=== PATIENT | female | born 1950 | race Caucasian/White ===

== ENCOUNTER 2016-10-14 11:43 | Inpatient (IN) | payer OTHER, MEDICARE ==
[~2016-10-14] VITALS: Ht 162.6 cm; Wt 70.8 kg
[~2016-10-14 11:43] MED LIST: ADVIN25050 PO; ALBUAER19 INH; AMB5 PO; CLC100 PO; FRRG PO; LPR25 PO; LVNIS40 SQ; MONT1TAB3 PO; MULT-589 PO; NCY50 PO; NRN100 PO; OXYSR10 PO; PRT40 PO; RSTOPS OP; RXC5 PO; SNK PO; SUMA50TA15 PO; XNX5 PO
[2016-10-14 11:51] VITALS: Ht 162.6 cm; Wt 70.8 kg
[2016-10-14] MEDS ORDERED: SODIUM CHLORIDE 0.9% 1000ML 1,000 ML IV STA (12:19)
[2016-10-14] MEDS ORDERED: LORAZEPAM 0.5 MG TAB SL STA (12:19)
[2016-10-14] MEDS ORDERED: SODIUM CHLORIDE 0.9% 250ML 250 ML IV STA (12:19)
[2016-10-14] MEDS ORDERED: CITALOPRAM 20 MG TAB PO STA (12:23)
[2016-10-14] MEDS ORDERED: ALPRAZOLAM 0.5 MG TAB PO STA (12:23)
--- NOTE | 2016-10-14 12:28 | EMERGENCY ROOM VISIT NOTE ---
History Report prepared by Onel: Jared William Under the Supervision of: Dr. Olga Johns M.D. First contact with patient: 12:15 Chief Complaint: ILLNESS Stated Complaint: SICK History of Present Illness The patient is a 66 year old female who presents to the Emergency Room with complaints of intermittent nausea for the past 1.5 months. She has also been experiencing vomiting & diarrhea. The patient has been ill since her bilateral knee replacement on August 27. She got a bladder infection and eventually pyelonephritis while staying at [facility]. The patient was on unknown antibiotics and Oxycodone, both of which she finished. The patient also complains of intermittent low-grade fevers since the surgery. Her symptoms have been making her very anxious. The patient was formerly on Xanax. She was prescribed Celexa, which she doesn't take because she believes it caused an adverse reaction. The patient is supposed to follow up with a psychiatrist, who won't see her until she recovers from the knee surgery. The patient denies suicidal ideations currently. She admits that she has thought about suicide in the past. She has never attempted suicide. Source of History: patient Onset: 1.5 months ago Position: other (GI) Quality: other (nausea) Timing: intermittent Associated Symptoms: + fevers Review of Systems See HPI for pertinent positives & negatives. A total of 10 systems reviewed and were otherwise negative. Past Medical & Surgical Medical Problems: (1) Asthma (2) Bilateral Knee Djd (3) bilateral symptomatic macromastia (4) Cervicalgia (5) Depression (6) Frequent headaches (7) Gastric ulcer (8) Kidney stones Surgical Problems: (1) Hx of cholecystectomy (2) Hx of hysterectomy (3) Hx of repair of rotator cuff Family History Cancer Heart disease Social History Smoking Status: Never Smoker Drug Use: none Marital Status: Housing Status: lives with significant other Occupation Status: employed Current/Historical Medications Scheduled Cyclosporine (Ophth) (Restasis), 1 DROP OP BID Enoxaparin (Enoxaparin Sodium), 40 MG SQ Q24H Hydroxyzine Hcl (Atarax), 5 MG PO TID Montelukast Sodium (Singulair), 10 MG PO PRN Scheduled PRN Albuterol Hfa (Ventolin Hfa), 2 PUFFS INH QID PRN for Shortness of Breath Alprazolam (Alprazolam), 0.5 MG PO Q8H PRN for Anxiety/Agitation Fluticasone Prop/Salmeterol (Advair Diskus 250-50 Mcg/Dose), 1 PUFF PO BID PRN for PRN Oxycodone HCl (Oxycodone HCl), 10 MG PO Q6H PRN for Pain Sumatriptan Succinate (Imitrex), 1 TAB PO UD PRN for Migraine Allergies Coded Allergies: Bisacodyl (Verified Allergy, Severe, SEVERE GI CRAMPS, 10/14/16) Ciprofloxacin (Verified Allergy, Intermediate, rash, thrush, 10/14/16) PER PCP RECORDS Codeine (Verified Allergy, Intermediate, RASH, HYPERACTIVITY,HEADACHE, DYSPEPSIA, 10/14/16) PALPITATIONS Hydrocodone (Verified Allergy, Intermediate, itchiness, 10/14/16) Hydromorphone (Verified Allergy, Intermediate, HYPERACTIVITY, 10/14/16) Lorazepam (Verified Allergy, Intermediate, "MEAN" AFFECT, 10/14/16) NSAIDs (Verified Allergy, Intermediate, mouth coating and then bloody, throat and stomach burn, 10/14/16) Tramadol (Verified Allergy, Intermediate, PRURITUS, HEADACHE, 10/14/16) Adhesives (Verified Allergy, Unknown, WELTS,REDNESS RASH, 10/14/16) Escitalopram (Verified Allergy, Unknown, HR RACES, 10/14/16) Latex1 -Allergic Contact Dermititis (Verified Allergy, Unknown, RASH, WELTS, ITCHING, 10/14/16) Molds & Smuts (Verified Allergy, Unknown, UNKNOWN, 10/14/16) Omeprazole (Verified Allergy, Unknown, QUESTIONABLE ALLERGY - SEVERE GI CRAMPS, 10/14/16) Penicillins (Verified Allergy, Unknown, RASH, DYSPEPSIA, 10/14/16) TOLD NOT TO TAKE-"IT WOULD KILL HER"-PENICILLIN AND AMOXICILLIN Prednisone (Verified Allergy, Unknown, RASH,RESTLESSNESS,HEADACHE, DYSPEPSIA, 10/14/16) Venlafaxine (Verified Allergy, Unknown, NIGHTMARES, 10/14/16) Acetaminophen (Verified Adverse Reaction, Intermediate, GI UPSET, 10/14/16) Buspirone (Verified Adverse Reaction, Intermediate, HYPERACTIVE, 10/14/16) Citalopram (Verified Adverse Reaction, Intermediate, NIGHT SWEATS,BAD DREAMS, 10/14/16) Flunisolide (Verified Adverse Reaction, Intermediate, NASAL SPRAY- NOSEBLEEDS,HEADACHES, 10/14/16) Hydroxyzine (Verified Adverse Reaction, Intermediate, HEADACHE - SEVER SINUS DRY/ BURNING FACIAL SENSATION, 08/27/16) Antihistamines, Chlorpheniramine-ty (Verified Adverse Reaction, Mild, SINUS DRYNESS, 10/14/16) Antihistamines, Diphenhydramine-typ (Verified Adverse Reaction, Mild, SINUS DRYNESS, 10/14/16) Antihistamines, Loratadine-type (Verified Adverse Reaction, Mild, SINUS DRYNESS, 10/14/16) Dicyclomine (Verified Adverse Reaction, Mild, WORSENING GI CRAMPS, 10/14/16 ) Diphenhydramine (Verified Adverse Reaction, Mild, headache, 10/14/16) Egg Yolk (Verified Adverse Reaction, Mild, GI UPSET, 10/14/16) Fluorometholone (Verified Adverse Reaction, Mild, 0.1% -EYE DROP EYES BURNING, 10/14/16) Gabapentin (Verified Adverse Reaction, Mild, "MEAN", 10/14/16) Physical Exam Vital Signs Date Time Temp Pulse Resp B/P Pulse Ox O2 Delivery O2 Flow Rate FiO2 10/14/16 18:21 71 18 146/84 97 10/14/16 17:01 83 18 162/92 10/14/16 16:34 75 10/14/16 16:15 74 18 153/78 98 Room Air 10/14/16 15:30 78 18 147/73 96 10/14/16 14:35 84 16 146/77 97 Room Air 10/14/16 13:18 65 16 138/85 97 10/14/16 12:38 64 10/14/16 12:30 76 18 161/90 98 10/14/16 12:14 77 18 153/94 98 Room Air 10/14/16 11:51 36.8 110 20 129/78 97 Room Air Physical Exam Vital signs reviewed. General: Patient is tearful, anxious. HEENT: No scleral icterus, PERRLA, neck supple. Atraumatic. Cardiovascular: Regular rate and rhythm, no extra sounds. Pulmonary: Clear to auscultation bilaterally, normal work of breathing. Abdomen: Soft, nontender, nondistended, positive bowel sounds. Musculoskeletal: Well-healed incisions to the bilateral knees. No peripheral edema. Neurologic: Patient awake alert and oriented x 3, full strength in all 4 extremities. Cranial nerves 2 through 12 grossly intact. Skin: Warm, dry, no rash Psychiatric: Currently denies suicidal or homicidal ideation Medical Decision & Procedures ER Provider Diagnostic Interpretation: X-ray results as stated below per my interpretation and radiologist interpretation. Other radiology results as stated below per my review and radiologist interpretation: AP CHEST WITH ABDOMINAL SERIES CLINICAL HISTORY: Vomiting and diarrhea. FINDINGS: An AP chest radiograph is compared to study dated 08/28/2016 and correlated with chest CT dated 08/30/2016. The examination is degraded by apical lordotic positioning. The cardiomediastinal silhouette is unremarkable. There is atherosclerotic calcification of the thoracic aorta. The lungs and pleural spaces are clear. No pneumothorax is seen. The skeletal structures are osteopenic. The bony thorax is grossly intact. Fusion hardware is noted in the lower cervical spine. Supine and decubitus abdominal radiographs are obtained. No prior studies are available for comparison at the time of dictation. There is a nonobstructed abdominal bowel gas pattern. No evidence of intraperitoneal free air is seen. Mild colonic fecal retention is observed. Cholecystectomy clips are noted. There are no abnormal abdominal calcifications. Phleboliths are seen in the pelvis. There is mild lumbar spondylosis. The bony pelvis appears intact. IMPRESSION: 1. No active disease in the chest. 2. Unremarkable abdominal radiographs. Electronically signed by: Chuy Pena M.D. 10/14/2016 2:04 PM Dictated Date/Time: 10/14/2016 2:[address] ANGIOGRAM OF THE CHEST CLINICAL HISTORY: Chest pain. Recent knee surgery. Suspected pulmonary embolism. COMPARISON STUDY: 08/30/2016 TECHNIQUE: Following the IV administration of 79 mL of Optiray-320, CT angiogram of the thorax was performed from the thoracic inlet to the lung bases utilizing the pulmonary embolus protocol. Images are reviewed in the axial, sagittal, and coronal planes. IV contrast was administered without complication. MIP imaging was performed. CT DOSE: 249.90 mGy.cm FINDINGS: No pathologically enlarged axillary mediastinal or hilar lymph nodes were visualized. There was no evidence of thoracic aortic dilatation. There are small bilateral pulmonary artery filling defects, most pronounced within the right lower lobe. The findings are consistent with pulmonary embolism. There are bilateral dependent groundglass opacities, likely atelectatic. No pleural effusions are visualized. IMPRESSION: Interval development of small bilateral pulmonary artery filling defects, consistent with acute pulmonary embolism. Electronically signed by: Balaji Tolbert M.D. 10/14/2016 4:14 PM Dictated Date/Time: 10/14/2016 4:09 PM Laboratory Results Test 10/14/16 00:00 10/14/16 12:50 10/14/16 12:54 Urine Color DK YELLOW Urine Appearance CLOUDY (CLEAR) Urine pH 5.5 (4.5-7.5) Urine Specific [place] 1.021 (1.000-1.030) Urine Protein TRACE (NEG) Urine Glucose (UA) NEG (NEG) Urine Ketones TRACE (NEG) Urine Occult Blood 1+ (NEG) Urine Nitrite NEG (NEG) Urine Bilirubin 1+ (NEG) Urine Urobilinogen NEG (NEG) Urine Leukocyte Esterase MODERATE (NEG) Urine WBC (Auto) >30 /hpf (0-5) Urine RBC (Auto) 10-30 /hpf (0-4) Urine Hyaline Casts (Auto) 5-10 /lpf (0-5) Urine Epithelial Cells (Auto) >30 /lpf (0-5) Urine Bacteria (Auto) NEG (NEG) Urine Crystals CALCIUM OXALATE (NONE Immature Granulocyte % (Auto) 0.2 % White Blood Count 8.79 K/uL (4.8-10.8) Red Blood Count 4.90 M/uL (4.2-5.4) Hemoglobin 13.6 g/dL (12.0-16.0) Hematocrit 41.4 % (37-47) Mean Corpuscular Volume 84.5 fL (80-100) Mean Corpuscular Hemoglobin 27.8 pg (25-34) Mean Corpuscular Hemoglobin Concent 32.9 g/dl (32-36) Platelet Count 378 K/uL (130-400) Mean Platelet Volume 10.2 fL (7.4-10.4) Neutrophils (%) (Auto) 70.7 % Lymphocytes (%) (Auto) 20.9 % Monocytes (%) (Auto) 6.3 % Eosinophils (%) (Auto) 1.3 % Basophils (%) (Auto) 0.6 % Neutrophils # (Auto) 6.22 K/uL (1.4-6.5) Lymphocytes # (Auto) 1.84 K/uL (1.2-3.4) Monocytes # (Auto) 0.55 K/uL (0.11-0.59) Eosinophils # (Auto) 0.11 K/uL (0-0.5) Basophils # (Auto) 0.05 K/uL (0-0.2) Immature Granulocyte # (Auto) 0.02 K/uL (0.00-0.02) Magnesium Level 2.0 mg/dl (1.8-2.4) Total Bilirubin 0.5 mg/dl (0.2-1) Direct Bilirubin 0.1 mg/dl (0-0.2) Aspartate Amino Transf (AST/SGOT) 26 U/L (15-37) Alanine Aminotransferase (ALT/SGPT) 31 U/L (12-78) Alkaline Phosphatase 110 U/L (45-117) Total Protein 8.2 gm/dl (6.4-8.2) Albumin 3.7 gm/dl (3.4-5.0) Lipase 109 U/L (73-393) Bedside D-Dimer > 450 ng/mlFEU (0-450) Bedside Troponin I 0.020 ng/ml (0-0.045) Laboratory results per my review. Medications Administered Medications (Trade) Dose Ordered Sig/Tong Route Start Time Stop Time Status Last Admin Dose Admin Sodium Chloride 1,000 ml @ 125 mls/hr Q8H STAT IV 10/14/16 12:19 10/14/16 20:18 DC 10/14/16 13:17 125 MLS/HR Sodium Chloride (Nss 250ml) 250 ml @ 999 mls/hr Q16M STAT IV 10/14/16 12:19 10/14/16 15:15 DC 10/14/16 13:18 999 MLS/HR Citalopram Hydrobromide (celeXA TAB) 10 mg NOW STAT PO 10/14/16 12:23 10/14/16 15:15 DC 10/14/16 13:17 10 MG Alprazolam (Xanax Tab) 0.5 mg NOW STAT PO 10/14/16 12:23 10/14/16 15:15 DC 10/14/16 13:16 0.5 MG ECG Indication: nausea Rate (beats per minute): 63 Rhythm: normal sinus Findings: no acute ischemic change, no ectopy ED Course 1217: Past medical records reviewed. The patient was evaluated in room B3b. A complete history and physical examination was performed. 1219: NSS 250 ml @ 999 mls/hr, NSS 1000 ml @ 125 mls/hr, Ativan 0.5 mg SL. 1223: Xanax 0.5 mg PO, Celexa 10 mg PO. 1626: I reviewed the patient's case with Dr. Yaneth ACOSTA. Dr. Wolfe will evaluate the patient for further management. Medical Decision Differential diagnosis: Metabolic abnormality, dehydration, PE,. pneumonia, CHF, acute coronary syndrome , anxiety. This patient was evaluated and appeared to be in no significant distress. Patient is anxious and tearful. EKG reveals no evidence of acute ischemic change. Patient was hydrated with normal saline solution. Chest x-ray is negative. Patient's laboratory work reveals an elevated d-dimer. Chest CT reveals evidence of acute PE. Patient was informed of the findings. She is stable at this time. The hospitalist was contacted and has requested bilateral lower extremity Dopplers. These have been ordered. They will evaluate the patient for further management. Patient and her are aware of the plan and agree. Consults Time Called: 1624 Consulting Physician: Dr. Yaneth ACOSTA Returned Call: [phone] I reviewed the patient's case with Dr. Yaneth ACOSTA. Dr. Wolfe will evaluate the patient for further management. Impression Primary Impression: Acute pulmonary embolism Scribe Attestation The scribe's documentation has been prepared under my direction and personally reviewed by me in its entirety. I confirm that the note above accurately reflects all work, treatment, procedures, and medical decision making performed by me. Departure Information Dispostion Being Evaluated By Hospitalist Referrals No Doctor, Assigned (PCP) Problem Qualifiers Primary Impression: Acute pulmonary embolism
[2016-10-14] MEDS ORDERED: HYDR-389 PO (12:34)
[2016-10-14] MEDS ORDERED: VNTHFA/IN INH (12:45)
[2016-10-14] MEDS ORDERED: CYCL0.052 OP (12:45)
[2016-10-14 12:58] LABS: BASO % 0.6 %; BASO ABS # 0.05 K/uL (0-0.2); COMPLETE YES; EOS % 1.3 %; HEMATOCRIT 41.4 % (37-47); IG% 0.2 %; LYMPH % 20.9 %; LYMPH ABS # 1.84 K/uL (1.2-3.4); MEAN CELL VOLUME 84.5 fL (80-100); MEAN CORPUSCULAR HEMOGLOBIN 27.8 pg (25-34); MEAN CORPUSCULAR HGB CONC 32.9 g/dl (32-36); MEAN PLATELET VOLUME 10.2 fL (7.4-10.4); MONO % 6.3 %; NEUT % 70.7 %; PLATELET COUNT 378 K/uL (130-400); WHITE BLOOD COUNT 8.79 K/uL (4.8-10.8)
[2016-10-14 13:15] LABS: BUN/CREATININE RATIO 8.3 (10-20); CALCIUM 10.3 mg/dl (8.5-10.1); CREATININE 0.94 mg/dl (0.60-1.20); POTASSIUM 3.6 mmol/L (3.5-5.1)
[2016-10-14 13:17] LABS: URINE APPEARANCE CLOUDY (CLEAR); URINE COLOR DK YELLOW; URINE EPITHELIAL CELL AUTO >30 /lpf (0-5); URINE NITRITE NEG (NEG); URINE PH 5.5 (4.5-7.5); URINE SPECIFIC GRAVITY 1.021 (1.000-1.030); UROBILINOGEN NEG (NEG); ZZURINE CULT IF INDIC CATH YES
[2016-10-14 13:20] LABS: MANUAL MICROSCOPIC REQUIRED? NO; REVIEW REQ? YES; URINE BILIRUBIN 1+ (NEG)
--- NOTE | 2016-10-14 14:05 | DIAGNOSTIC IMAGING REPORT ---
AP CHEST WITH ABDOMINAL SERIES CLINICAL HISTORY: Vomiting and diarrhea. FINDINGS: An AP chest radiograph is compared to study dated 08/28/2016 and correlated with chest CT dated 08/30/2016. The examination is degraded by apical lordotic positioning. The cardiomediastinal silhouette is unremarkable. There is atherosclerotic calcification of the thoracic aorta. The lungs and pleural spaces are clear. No pneumothorax is seen. The skeletal structures are osteopenic. The bony thorax is grossly intact. Fusion hardware is noted in the lower cervical spine. Supine and decubitus abdominal radiographs are obtained. No prior studies are available for comparison at the time of dictation. There is a nonobstructed abdominal bowel gas pattern. No evidence of intraperitoneal free air is seen. Mild colonic fecal retention is observed. Cholecystectomy clips are noted. There are no abnormal abdominal calcifications. Phleboliths are seen in the pelvis. There is mild lumbar spondylosis. The bony pelvis appears intact. IMPRESSION: 1. No active disease in the chest. 2. Unremarkable abdominal radiographs. Electronically signed by: Chuy Pena M.D. 10/14/2016 2:04 PM Dictated Date/Time: 10/14/2016 2:02 PM
[2016-10-14] MEDS ORDERED: OPTIRAY 320 IV PRN (15:30)
--- NOTE | 2016-10-14 16:15 | DIAGNOSTIC IMAGING REPORT ---
CT ANGIOGRAM OF THE CHEST CLINICAL HISTORY: Chest pain. Recent knee surgery. Suspected pulmonary embolism. COMPARISON STUDY: 08/30/2016 TECHNIQUE: Following the IV administration of 79 mL of Optiray-320, CT angiogram of the thorax was performed from the thoracic inlet to the lung bases utilizing the pulmonary embolus protocol. Images are reviewed in the axial, sagittal, and coronal planes. IV contrast was administered without complication. MIP imaging was performed. CT DOSE: 249.90 mGy.cm FINDINGS: No pathologically enlarged axillary mediastinal or hilar lymph nodes were visualized. There was no evidence of thoracic aortic dilatation. There are small bilateral pulmonary artery filling defects, most pronounced within the right lower lobe. The findings are consistent with pulmonary embolism. There are bilateral dependent groundglass opacities, likely atelectatic. No pleural effusions are visualized. IMPRESSION: Interval development of small bilateral pulmonary artery filling defects, consistent with acute pulmonary embolism. Electronically signed by: Balaji Tolbert M.D. 10/14/2016 4:14 PM Dictated Date/Time: 10/14/2016 4:09 PM
--- NOTE | 2016-10-14 17:45 | DIAGNOSTIC IMAGING REPORT ---
ULTRASOUND VENOUS DOPPLER LWR EXT BILA CLINICAL HISTORY: Pulmonary embolism. History of bilateral knee replacements. COMPARISON STUDY: No previous studies for comparison. FINDINGS: Real-time and color flow Doppler imaging were performed. Flow was seen within the femoral, popliteal and calf veins with no intraluminal thrombus demonstrated. The saphenous vein is patent. IMPRESSION: No evidence of lower extremity DVT. Electronically signed by: Balaji Tolbert M.D. 10/14/2016 5:44 PM Dictated Date/Time: 10/14/2016 5:43 PM
[2016-10-14] MEDS ORDERED: FLUTICASONE/SALMETEROL 250/50 (ADVAIR) 14 PUFF/1 INHALER INH PRN (18:45)
[2016-10-14] MEDS ORDERED: POLYETHYLENE (MIRALAX) 17 GM PACK PO PRN (18:45)
[2016-10-14] MEDS ORDERED: ALBUTEROL HFA 8 GM INHALER INH PRN (18:45)
[2016-10-14] MEDS ORDERED: ALUMINUM/MAGNESIUM/SIMETH (MAALOX MAX) 30 ML UDC PO PRN (18:45)
[2016-10-14] MEDS ORDERED: SUMATRIPTAN SUCCINATE 50 MG TAB PO PRN (18:45)
[2016-10-14] MEDS ORDERED: MAGNESIUM HYDROXIDE SUSP 30 ML UDC PO PRN (18:45)
[2016-10-14] MEDS ORDERED: ONDANSETRON INJ 2 MG/ML 2 ML VIAL IV PRN (18:45)
[2016-10-14 20:26] VITALS: BP 160/77; PULSE 61; TEMP 36.6; O2SAT 97
[2016-10-14] MEDS ORDERED: ENOXAPARIN 80 MG/0.8 ML SYR SQ SCH (21:00)
--- NOTE | 2016-10-14 21:18 | History and Physical ---
History & Physical Date & Time of Service: Oct 14, 2016 at 20:48 Chief Complaint: Acute Pulmonary Embolism Primary Care Physician: Eloise Koehler M.D. History of Present Illness Source: patient Ms. Wooten is a 66 y/o female with PMHx of Migraines, Anxiety/Depression, and Bilateral TKA (August 27, 2016) who presents to the ED c/o intermittent nausea x 1 1/2 months. History is limited as patient is extremely anxious and unable to focus on majority of questions asked. She reports that she has not been doing well mentally even prior to bilateral knee replacements. Reporting a lot of social stressors between her being out of work and her medical problems. She reports feelings depression with thoughts of suicide back in August. She has an extensive allergy list and reports poor tolerance of many medications and relates her symptoms to medications. Because of this she has stopped all medications except medications for anxiety. Recently stopped Celexa as she thought this was causing her symptoms. She received acute rehab at [facility] after her surgery and reports development of a UTI with pyelonephritis. She is not sure of the antibiotics used but she has finished the course and has had no further symptoms. At [facility] she did receive Lovenox 40 mg SC daily for DVT prophylaxis during her stay of 11 days. After discharge she has participated in physical therapy but largely immobile at home due to feeling ill. She was noted to have an elevated D -Dimer at > 450 with CTA confirming bilateral small pulmonary emboli. Venous dopplers negative for DVT. She reports a grandfather who from PE after Hip Fx. To her knowledge there is no other history of clotting disorders or blood clots in the family. She reports intermittent CP over the past month but related this to dry heaving. She denies fever/chills, SOB, or abdominal pain. She reports feelings of depression but denies current thoughts of suicide or plan. Past Medical/Surgical History Medical Problems: (1) Asthma Status: Chronic (2) Cervicalgia Status: Chronic (3) Depression Status: Chronic (4) Frequent headaches Status: Chronic (5) Gastric ulcer Status: Chronic (6) Kidney stones Status: Resolved Surgical Problems: (1) Hx of cholecystectomy Status: Resolved (2) Hx of hysterectomy Status: Resolved (3) Hx of repair of rotator cuff Status: Resolved Family History Cancer Heart disease Social History Smoking Status: Never Smoker Smokeless Tobacco Use: No Alcohol Use: none Drug Use: none Marital Status: Occupational Status: employed Allergies Coded Allergies: Bisacodyl (Verified Allergy, Severe, SEVERE GI CRAMPS, 10/14/16) Ciprofloxacin (Verified Allergy, Intermediate, rash, thrush, 10/14/16) PER PCP RECORDS Codeine (Verified Allergy, Intermediate, RASH, HYPERACTIVITY,HEADACHE, DYSPEPSIA, 10/14/16) PALPITATIONS Hydrocodone (Verified Allergy, Intermediate, itchiness, 10/14/16) Hydromorphone (Verified Allergy, Intermediate, HYPERACTIVITY, 10/14/16) Lorazepam (Verified Allergy, Intermediate, "MEAN" AFFECT, 10/14/16) NSAIDs (Verified Allergy, Intermediate, mouth coating and then bloody, throat and stomach burn, 10/14/16) Tramadol (Verified Allergy, Intermediate, PRURITUS, HEADACHE, 10/14/16) Adhesives (Verified Allergy, Unknown, WELTS,REDNESS RASH, 10/14/16) Escitalopram (Verified Allergy, Unknown, HR RACES, 10/14/16) Latex1 -Allergic Contact Dermititis (Verified Allergy, Unknown, RASH, WELTS, ITCHING, 10/14/16) Molds & Smuts (Verified Allergy, Unknown, UNKNOWN, 10/14/16) Omeprazole (Verified Allergy, Unknown, QUESTIONABLE ALLERGY - SEVERE GI CRAMPS, 10/14/16) Penicillins (Verified Allergy, Unknown, RASH, DYSPEPSIA, 10/14/16) TOLD NOT TO TAKE-"IT WOULD KILL HER"-PENICILLIN AND AMOXICILLIN Prednisone (Verified Allergy, Unknown, RASH,RESTLESSNESS,HEADACHE, DYSPEPSIA, 10/14/16) Venlafaxine (Verified Allergy, Unknown, NIGHTMARES, 10/14/16) Acetaminophen (Verified Adverse Reaction, Intermediate, GI UPSET, 10/14/16) Buspirone (Verified Adverse Reaction, Intermediate, HYPERACTIVE, 10/14/16) Citalopram (Verified Adverse Reaction, Intermediate, NIGHT SWEATS,BAD DREAMS, 10/14/16) Flunisolide (Verified Adverse Reaction, Intermediate, NASAL SPRAY- NOSEBLEEDS,HEADACHES, 10/14/16) Hydroxyzine (Verified Adverse Reaction, Intermediate, HEADACHE - SEVER SINUS DRY/ BURNING FACIAL SENSATION, 08/27/16) Antihistamines, Chlorpheniramine-ty (Verified Adverse Reaction, Mild, SINUS DRYNESS, 10/14/16) Antihistamines, Diphenhydramine-typ (Verified Adverse Reaction, Mild, SINUS DRYNESS, 10/14/16) Antihistamines, Loratadine-type (Verified Adverse Reaction, Mild, SINUS DRYNESS, 10/14/16) Dicyclomine (Verified Adverse Reaction, Mild, WORSENING GI CRAMPS, 10/14/16 ) Diphenhydramine (Verified Adverse Reaction, Mild, headache, 10/14/16) Egg Yolk (Verified Adverse Reaction, Mild, GI UPSET, 10/14/16) Fluorometholone (Verified Adverse Reaction, Mild, 0.1% -EYE DROP EYES BURNING, 10/14/16) Gabapentin (Verified Adverse Reaction, Mild, "MEAN", 10/14/16) Home Medications Scheduled Cyclosporine (Ophth) (Restasis), 1 DROP OP BID Enoxaparin (Enoxaparin Sodium), 40 MG SQ Q24H Hydroxyzine Hcl (Atarax), 5 MG PO TID Montelukast Sodium (Singulair), 10 MG PO PRN Scheduled PRN Albuterol Hfa (Ventolin Hfa), 2 PUFFS INH QID PRN for Shortness of Breath Alprazolam (Alprazolam), 0.5 MG PO Q8H PRN for Anxiety/Agitation Fluticasone Prop/Salmeterol (Advair Diskus 250-50 Mcg/Dose), 1 PUFF PO BID PRN for PRN Oxycodone HCl (Oxycodone HCl), 10 MG PO Q6H PRN for Pain Sumatriptan Succinate (Imitrex), 1 TAB PO UD PRN for Migraine Review of Systems Constitutional: No chills, No fever Eyes: No worsening of vision ENT: No nasal symptoms, No sore throat, No trouble swallowing Respiratory: No cough, No shortness of breath Cardiovascular: No chest pain Abdomen: + diarrhea, + nausea, + vomiting, No pain Musculoskeletal: No calf pain Genitourinary - Female: No dysuria Neurologic: No balance problems Psychiatric: + anxiety, + depression symptoms Hematologic / Lymphatic: No abnormal bleeding/bruising, No clotting problems Integumentary: No rash Physical Exam Vital Signs Date Time Temp Pulse Resp B/P Pulse Ox O2 Delivery O2 Flow Rate FiO2 1/30/17 19:28 73 16 139/81 98 10/14/16 18:21 71 18 146/84 97 10/14/16 17:01 83 18 162/92 10/14/16 16:34 75 10/14/16 16:15 74 18 153/78 98 Room Air 10/14/16 15:30 78 18 147/73 96 10/14/16 14:35 84 16 146/77 97 Room Air 10/14/16 13:18 65 16 138/85 97 10/14/16 12:38 64 10/14/16 12:30 76 18 161/90 98 10/14/16 12:14 77 18 153/94 98 Room Air 10/14/16 11:51 36.8 110 20 129/78 97 Room Air General Appearance: WD/WN, + moderate distress (anxious), + thin Head: normocephalic, atraumatic Eyes: PERRL, sclerae normal ENT: hearing grossly normal Neck: supple, no JVD, trachea midline Respiratory/Chest: lungs clear, normal breath sounds, no respiratory distress, no accessory muscle use Cardiovascular: regular rate, rhythm, no gallop, no murmur Abdomen/GI: normal bowel sounds, non tender, soft Back: normal inspection, no CVA tenderness Extremities/Musculoskelatal: no calf tenderness, no pedal edema Neurologic/Psych: alert, oriented x 3 Skin: normal color, warm/dry Diagnostics Laboratory Results Results Past 24 Hours Test 10/14/16 00:00 10/14/16 12:50 10/14/16 12:54 10/14/16 19:10 Range/Units Urine Color DK YELLOW Urine Appearance CLOUDY CLEAR Urine pH 5.5 4.5-7.5 Urine Specific [place] 1.021 1.000-1.030 Urine Protein TRACE NEG Urine Glucose (UA) NEG NEG Urine Ketones TRACE NEG Urine Occult Blood 1+ NEG Urine Nitrite NEG NEG Urine Bilirubin 1+ NEG Urine Urobilinogen NEG NEG Urine Leukocyte Esterase MODERATE NEG Urine WBC (Auto) >30 0-5 /hpf Urine RBC (Auto) 10-30 0-4 /hpf Urine Hyaline Casts (Auto) 5-10 0-5 /lpf Urine Epithelial Cells (Auto) >30 0-5 /lpf Urine Bacteria (Auto) NEG NEG Urine Crystals CALCIUM OXALATE NONE PRSENT White Blood Count 8.79 4.8-10.8 K/uL Red Blood Count 4.90 4.2-5.4 M/uL Hemoglobin 13.6 12.0-16.0 g/dL Hematocrit 41.4 37-47 % Mean Corpuscular Volume 84.5 80-100 fL Mean Corpuscular Hemoglobin 27.8 25-34 pg Mean Corpuscular Hemoglobin Concent 32.9 32-36 g/dl Platelet Count 378 130-400 K/uL Mean Platelet Volume 10.2 7.4-10.4 fL Neutrophils (%) (Auto) 70.7 % Lymphocytes (%) (Auto) 20.9 % Monocytes (%) (Auto) 6.3 % Eosinophils (%) (Auto) 1.3 % Basophils (%) (Auto) 0.6 % Neutrophils # (Auto) 6.22 1.4-6.5 K/uL Lymphocytes # (Auto) 1.84 1.2-3.4 K/uL Monocytes # (Auto) 0.55 0.11-0.59 K/uL Eosinophils # (Auto) 0.11 0-0.5 K/uL Basophils # (Auto) 0.05 0-0.2 K/uL RDW Standard Deviation 48.8 36.4-46.3 fL RDW Coefficient of Variation 15.8 11.5-14.5 % Immature Granulocyte % (Auto) 0.2 % Immature Granulocyte # (Auto) 0.02 0.00-0.02 K/uL Sodium Level 139 136-145 mmol/L Potassium Level 3.6 3.5-5.1 mmol/L Chloride Level 103 98-107 mmol/L Carbon Dioxide Level 23 21-32 mmol/L Anion Gap 13.0 3-11 mmol/L Blood Urea Nitrogen 8 7-18 mg/dl Creatinine 0.94 0.60-1.20 mg/dl Est Creatinine Clear Calc Drug Dose 56.9 ml/min Estimated GFR () 73.8 Estimated GFR (Non- 63.7 BUN/Creatinine Ratio 8.3 10-20 Random Glucose 107 70-99 mg/dl Calcium Level 10.3 8.5-10.1 mg/dl Magnesium Level 2.0 1.8-2.4 mg/dl Total Bilirubin 0.5 0.2-1 mg/dl Direct Bilirubin 0.1 0-0.2 mg/dl Aspartate Amino Transf (AST/SGOT) 26 15-37 U/L Alanine Aminotransferase (ALT/SGPT) 31 12-78 U/L Alkaline Phosphatase 110 45-117 U/L Total Creatine Kinase 39 26-192 U/L Total Protein 8.2 6.4-8.2 gm/dl Albumin 3.7 3.4-5.0 gm/dl Lipase 109 73-393 U/L Bedside D-Dimer > 450 0-450 ng/mlFEU Bedside Troponin I 0.020 0-0.045 ng/ml Creatine Kinase MB Ratio 0-3.0 Test 10/14/16 20:22 Range/Units Microbiology Results 10/14/16 Urine Culture, Received Pending Diagnostic Radiology CT ANGIOGRAM OF THE CHEST CLINICAL HISTORY: Chest pain. Recent knee surgery. Suspected pulmonary embolism. COMPARISON STUDY: 08/30/2016 TECHNIQUE: Following the IV administration of 79 mL of Optiray-320, CT angiogram of the thorax was performed from the thoracic inlet to the lung bases utilizing the pulmonary embolus protocol. Images are reviewed in the axial, sagittal, and coronal planes. IV contrast was administered without complication. MIP imaging was performed. CT DOSE: 249.90 mGy.cm FINDINGS: No pathologically enlarged axillary mediastinal or hilar lymph nodes were visualized. There was no evidence of thoracic aortic dilatation. There are small bilateral pulmonary artery filling defects, most pronounced within the right lower lobe. The findings are consistent with pulmonary embolism. There are bilateral dependent groundglass opacities, likely atelectatic. No pleural effusions are visualized. IMPRESSION: Interval development of small bilateral pulmonary artery filling defects, consistent with acute pulmonary embolism. ULTRASOUND VENOUS DOPPLER LWR EXT BILA CLINICAL HISTORY: Pulmonary embolism. History of bilateral knee replacements. COMPARISON STUDY: No previous studies for comparison. FINDINGS: Real-time and color flow Doppler imaging were performed. Flow was seen within the femoral, popliteal and calf veins with no intraluminal thrombus demonstrated. The saphenous vein is patent. IMPRESSION: No evidence of lower extremity DVT. EKG Normal sinus rhythm Normal ECG When compared with ECG of 30-AUG-2016 08:17, Premature supraventricular complexes are no longer Present Vent. rate has decreased BY 55 BPM Criteria for Inferior infarct are no longer Present Confirmed by DAKOTA RUCKER MD ([id number]) on 10/14/2016 2:42:38 PM Impression Assessment and Plan Ms. Wooten is a 66 y/o female with PMHx of Migraines, Anxiety/Depression, and Bilateral TKA (August 27, 2016) who presents to the ED c/o intermittent nausea x 1 1/2 months. CTA of chest reveals bilateral small pulmonary emboli with B/L lower extremity U /S negative for DVT Bilateral Pulmonary Emboli: - Recent B/L TKA in August with Lovenox 40 mg SC during [facility] stay but reports limited mobility due to feeling ill - Lovenox 70 mg Q12H - for 1 mg/kg dosing - Serial cardiac enzymes - initial trop 0.020 - Hypercoaguable work-up - Trend PT/INR/PTT Anxiety/Depression: - Would suspect that most of symptoms described are related to poorly controlled depression/anxiety -- Due to anxiety an adequate history of medications limited as I had difficulty keeping her on track -- Anxiety does not appear related to PE findings as she is not in respiratory distress and patient discussion reveals chronic issues - Reports she is currently not being followed by psychiatry - and a lot of intolerances to medications - Xanax 0.5 mg Q8H PRN - Celexa 10 mg daily - Consult psychiatry - recommendations for medications or establishment of care Code Status: - FULL RESUSCITATION Disposition: - Anti-coagulation will need instituted - may benefit from NOAC - will need to clear with insurance for coverage Level of Care Telemetry Advanced Directives Existing Advance Directive: Yes Existing Living Will: Yes 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 Y/N: Yes Risk Level: High Given or contraindicated: Enoxaparin (Lovenox)SQ Assessment and Plan Attending Addendum: I have physically seen and examined this patient, have directed their medical care, have supervised the PA's activity, and agree with the H&P as noted above, with the following changes: NONE.
[2016-10-14] MEDS: SODIUM CHLORIDE 0.9% 1000ML 1,000 ML IV SCH (21:39)
[2016-10-14 21:55] LABS: CKMB/CK RATIO 2.1 (0-3.0)
[2016-10-15] VITALS (8 sets, daily range): BP systolic 117–158; BP diastolic 71–77; PULSE 65–73; TEMP 36.4–36.9; O2SAT 95–98
[2016-10-15 02:03] LABS: CKMB/CK RATIO 1.9 (0-3.0)
[2016-10-15] MEDS: ALPRAZOLAM 0.5 MG TAB PO PRN ×3 (04:09→21:09)
[2016-10-15 07:25] LABS: HEMATOCRIT 34.7 % (37-47); MEAN CELL VOLUME 86.5 fL (80-100); MEAN CORPUSCULAR HEMOGLOBIN 27.7 pg (25-34); MEAN PLATELET VOLUME 9.8 fL (7.4-10.4); PLATELET COUNT 305 K/uL (130-400); RED BLOOD COUNT 4.01 M/uL (4.2-5.4); WHITE BLOOD COUNT 6.16 K/uL (4.8-10.8)
[2016-10-15 07:34] LABS: INR 1.1 (0.9-1.1); PARTIAL THROMBOPLASTIN RATIO 1.2; PROTHROMBIN TIME (PATIENT) 11.8 SECONDS (9.0-12.0)
[2016-10-15] MEDS: SODIUM CHLORIDE 0.9% 1000ML 1,000 ML IV SCH ×2 (07:53→16:18)
[2016-10-15 07:57] LABS: BUN/CREATININE RATIO 13.2 (10-20); CALCIUM 8.9 mg/dl (8.5-10.1); CREATININE 0.64 mg/dl (0.60-1.20); POTASSIUM 3.7 mmol/L (3.5-5.1)
[2016-10-15] MEDS ORDERED: CITALOPRAM 20 MG TAB PO SCH (09:00)
[2016-10-15] MEDS: APIXABAN 2.5 MG TAB PO SCH ×2 (09:55→21:07)
[2016-10-15] MEDS ORDERED: ONDANSETRON INJ 2 MG/ML 2 ML VIAL ONE (10:01)
[2016-10-15] MEDS ORDERED: ONDANSETRON INJ 2 MG/ML 2 ML VIAL IV PRN (12:45)
--- NOTE | 2016-10-15 15:03 | Hospitalist Progress Note ---
Hospitalist Progress Note Date of Service Oct 15, 2016. Subjective Pt evaluation today including: conversation w/ patient, physical exam, chart review, lab review, review of studies, review of inpatient medication list Patient had continued nausea and diarrhea Currently states she feels bad Denies any SOB, vomiting or fevers Constitutional: No fever Eyes: No worsening of vision ENT: No hearing loss Respiratory: No cough, No shortness of breath Cardiovascular: No chest pain, No edema Abdomen: + diarrhea, + nausea, + pain, No vomiting Musculoskeletal: No joint pain Female : No dysuria Neurologic: No memory loss Psychiatric: + depression symptoms Objective Vital Signs Date Time Temp Pulse Resp B/P Pulse Ox O2 Delivery O2 Flow Rate FiO2 10/15/16 12:00 Room Air 10/15/16 11:11 36.8 70 18 127/76 97 10/15/16 08:00 Room Air 10/15/16 07:35 36.7 65 20 128/71 96 10/15/16 04:00 Room Air 10/15/16 04:00 36.5 68 20 133/74 97 Room Air 10/15/16 00:00 36.9 73 20 158/77 98 Room Air 10/15/16 00:00 Room Air 10/14/16 20:26 36.6 61 14 160/77 97 Room Air 10/14/16 19:28 73 16 139/81 98 10/14/16 18:21 71 18 146/84 97 10/14/16 17:01 83 18 162/92 10/14/16 16:34 75 10/14/16 16:15 74 18 153/78 98 Room Air 10/14/16 15:30 78 18 147/73 96 Physical Exam General Appearance: WD/WN, no apparent distress Eyes: normal inspection ENT: normal ENT inspection Neck: supple Respiratory/Chest: chest non-tender Cardiovascular: regular rate, rhythm, no edema Abdomen: + abnormal bowel sounds (hyperactive), + guarding, + tenderness Extremities: normal range of motion Neurologic/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: 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 nml as tested, no motor/sensory deficits, alert, oriented x 3 Skin: normal color, warm/dry, no rash Lymphatic: no adenopathy Laboratory Results Last 24 Hours Test 10/14/16 20:22 10/15/16 01:22 10/15/16 07:00 1/31/17 12:20 Total Creatine Kinase 34 U/L 32 U/L Creatine Kinase MB 0.7 ng/ml 0.6 ng/ml Creatine Kinase MB Ratio 2.1 1.9 Troponin I < 0.015 ng/ml < 0.015 ng/ml White Blood Count 6.16 K/uL Red Blood Count 4.01 M/uL Hemoglobin 11.1 g/dL Hematocrit 34.7 % Mean Corpuscular Volume 86.5 fL Mean Corpuscular Hemoglobin 27.7 pg Mean Corpuscular Hemoglobin Concent 32.0 g/dl RDW Standard Deviation 51.0 fL RDW Coefficient of Variation 15.9 % Platelet Count 305 K/uL Mean Platelet Volume 9.8 fL Prothrombin Time 11.8 SECONDS Prothromb Time International Ratio 1.1 Activated Partial Thromboplast Time 30.2 SECONDS Partial Thromboplastin Ratio 1.2 Sodium Level 141 mmol/L Potassium Level 3.7 mmol/L Chloride Level 107 mmol/L Carbon Dioxide Level 25 mmol/L Anion Gap 9.0 mmol/L Blood Urea Nitrogen 8 mg/dl Creatinine 0.64 mg/dl Est Creatinine Clear Calc Drug Dose 83.2 ml/min Estimated GFR () 108.5 Estimated GFR (Non- 93.6 BUN/Creatinine Ratio 13.2 Random Glucose 94 mg/dl Calcium Level 8.9 mg/dl Influenza Type A Antigen Neg for Influ A Influenza Type B Antigen Neg for Influ B Assessment and Plan Ms. Wooten is a 66 y/o female with PMHx of Migraines, Anxiety/Depression, and Bilateral TKA (August 27, 2016) who presents to the ED c/o intermittent nausea x 1 1/2 months. CTA of chest reveals bilateral small pulmonary emboli with B/L lower extremity U /S negative for DVT Bilateral Pulmonary Emboli: - Recent B/L TKA in August - started on eliquis/per CM co-pay $117/ will discuss with patient - hypercoagulable w/u pending/antithrombin II, factor V, anticardiolipin, Protein C/S, Beta 2 GPI, PT gene pending - LE duplex negative Diarrhea - check cdiff - cont NSS @100 cc/hr - if c diff and stool studies return unremarkable will start Imodium Anxiety/Depression: - Reports she is currently not being followed by psychiatry - and a lot of intolerances to medications - Xanax 0.5 mg Q8H PRN - Celexa 10 mg daily - Consult psychiatry Code Status: - FULL RESUSCITATION Disposition: - Home in 1-2 days
--- NOTE | 2016-10-15 15:08 | CONSULTATION REPORT ---
DATE OF CONSULTATION: 10/15/2016 IDENTIFYING DATA: Tegan Wooten is a 66-year-old woman from [place], [place], who is admitted to the hospital with pulmonary emboli. This consult is requested to evaluate anxiety and depression. Information is gathered from the patient and considered to be reliable. CHIEF COMPLAINT: "I have been trying to get in to somebody because I knew I needed a psychiatrist to manage my medicines." HISTORY OF PRESENT ILLNESS: Tegan Wooten is a 66-year-old woman with medical history significant for asthma, gastric ulcer, migraines, anxiety, depression, and recent bilateral total knee arthroplasties in August 2016, who has been complaining of intermittent nausea for the last month and a half as well as anxiety and poor focus. She said that she was not doing well before her knee replacements and since has been increasingly anxious and distressed based on the need to rehab, her 's medical conditions and ongoing stressors from earlier in her life. She admits that she had thoughts of suicide in August, but did not act on them. She had gone to [facility] after her knee replacements. According to the patient, she had been placed on narcotics at some point and was delirious for a period of 8-9 days. She also felt that helped self-medicated her with medications that conflicted with other medication she was on and did not involve her in her treatment at all. After discharge from [facility] she was apparently largely immobile, although attending physical therapy at [facility] physical therapy in the [place] area. She was noted to have an elevated D-dimer and CAT scan confirmed bilateral small pulmonary emboli. Venous Dopplers were negative for DVT. There is a positive family history for PE in a grandfather who had emboli after hip surgery. Today, the patient is very talkative and readily talks about her long history with depression and anxiety. She describes a lifelong lemus with chronic worry that was triggered at certain points during her life. She remembers having an incident in her early 20s with a man that caused her to have severe depression and increased her anxiety. She then said that she was relatively good until she started caring for her mother who was in declining health in the early 2009. Apparently, the patient had her mother living with her for 3 years, the last 2-1/2 years of which was very difficult and during the last 3 months of her mother's life she was in a nursing facility. The patient still has a great deal of guilt about having to put her mother in a penitentiary and wonders if she could have done something differently. Apparently her PCP, has over the years, tried multiple medications for her anxiety and depression, but she describes being very sensitive to medications, always having side effects that limits the benefit. Her last trial of antidepressant was Celexa which was started during one of her hospitalizations, but she stopped it for a period of time at home because it caused her to have sweats and nightmares. Here in the hospital, it was restarted, switched to morning and the dosage reduced to 10 mg. She continues to say that she is depressed, anxious and "frustrated." She denies any current suicidal thinking. She reports that her appetite has been down and has experienced a 15 pound weight loss since surgery, although is eating well here in the hospital. She describes poor concentration, low energy and disturbed sleep, only getting 2-3 hours at a time before she starts waking up. She is worried about her who has type 2 diabetes and does not take care of his diet and is currently experiencing very high sugars. She herself has experienced 3 major surgeries since 2013 that have also contributed to her anxiety. She reports that her anxiety rises to the level of panic attacks on an almost daily basis since she had her surgery in August. CURRENT MEDICATIONS: 1. Zofran p.r.n. 2. Celexa 10 mg q.a.m. 3. Eliquis 10 mg b.i.d. 4. MiraLax 17 grams daily p.r.n. 5. Ventolin p.r.n. 6. Xanax 0.5 mg q. 8 hours p.r.n. anxiety. 7. Advair Diskus 250/50 one puff b.i.d. p.r.n. 8. Imitrex 50 mg daily p.r.n. migraine. PAST PSYCHIATRIC HISTORY: The patient has never seen a psychiatric prescriber. She has been attempting to get in to see a therapist in [place]. She has never been hospitalized for mental health reasons. She has never made a suicide attempt. There is no evidence of violence to self or others in the last 6 months. PRIOR MEDICATION TRIALS: Include but are not limited to: 1. Ativan. 2. BuSpar -- made her mean. 3. Xanax -- previously did not want to take it because she was worried about being dependent. 4. Zoloft --? 5. Vistaril -- did not like the way she felt. 6. Effexor -- bad dreams. 7. Celexa -- sweats and nightmares. ACCESS TO GUNS: Yes. ALLERGIES: 1. Dulcolax -- SEVERE GI CRAMPS. 2. CIPRO -- RASH AND Thrush. 3. CODEINE ? RASH, HYPERACTIVITY, HEADACHE. 4. HYDROCODONE -- ITCHINESS. 5. Dilaudid -- HYPERACTIVITY. 6. Ativan -- MEAN. 7. NSAIDs --? 8. TRAMADOL -- PRURITUS AND HEADACHE. 9. ESCITALOPRAM -- HEART RATE RACES. 10. LATEX ALLERGY. 11. MOLDS, SMUTS. 12. OMEPRAZOLE. 13. PENICILLIN -- RASH AND DYSPEPSIA. 14. PREDNISONE ? RASH, RESTLESSNESS, HEADACHES. 15. EFFEXOR -- NIGHTMARES. 16. TYLENOL -- GI UPSET. 17. BUSPAR -- HYPERACTIVE. 18. CELEXA -- NIGHT SWEATS AND BAD DREAMS. 19. FLUNISOLIDE -- NOSEBLEEDS. 20. HYDROXYZINE -- HEADACHES. 21. CHLORPHENIRAMINE -- SINUS DRYNESS. 22. ANTIHISTAMINES -- SINUS DRYNESS. 23. DICYCLOMINE -- WORSENING GI CRAMPS. 24. BENADRYL -- HEADACHE. 25. EGG YOLK -- GI UPSET. 26. FLUOROMETHOLONE -- MAKES HER EYES ARE. 27. GABAPENTIN -- MAKES HER MEAN. PAST MEDICAL HISTORY: 1. Migraines. 2. Cervical stenosis. 3. Nephrolithiasis. 4. Asthma. 5. Very remote history of a head injury in second grade when she fell on the ice but no history of seizures. 6. Tobacco use -- nonsmoker. FAMILY HISTORY: Positive for paternal grandmother, maternal grandmother and mother with anxiety and depression. Grandmother attempted suicide. There is no family history for drug or alcohol problems or completed suicide. SUBSTANCE ABUSE HISTORY: In the last year, the patient endorses only rare use of alcohol, an occasional beer. She has never done street drugs, organic substances, inhalants, abused over the counter or prescription medicines. PERSONAL HISTORY: The patient currently lives in the [facility]. She is a high school graduate. 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 She has been to her for 34 years. She has 3 stepchildren. She is a Sikh. There are no legal concerns. Trauma history is denied. MENTAL STATUS EXAMINATION: A 66-year-old woman who looks somewhat younger than her stated age. She is sitting in her 2nd floor bed, alert and cooperative with the interview. Eye contact is good. Motor behavior is unremarkable. Speech is somewhat rapid, but not pressured, and of normal volume and tone. Affect is anxious to depressed. Mood is depressed. Thought process is organized and goal directed, although has a tendency to be overly inclusive in her discussion. She denies thought disorder in the form of hallucinations or delusions. She currently denies suicidal thoughts or homicidal thoughts. Today, she is fully oriented. Memory functions are intact. Fund of knowledge is intact. Intelligence is estimated to be average. Insight and judgment are fair. VITAL SIGNS: Temp 36.8, pulse 70, respirations 18, blood pressure 127/76, pulse ox 97% on room air. LABORATORIES: 1. CBC -- notable for low RBCs 4.01, hemoglobin 11.1, and hematocrit 34.7. 2. Chem profile -- within normal limits. 3. Coag studies -- within normal limits with the exception of D-dimer 450 on admission. 4. Urinalysis -- positive for calcium oxalate, greater than 30 epithelials, 5-10 hyaline casts, 10-30 RBCs, greater than 30 WBCs, moderate amount of leukocyte esterase, 1+ occult blood and trace ketones. 5. Immunology pending. 6. Prothrombin gene testing -- pending. IMAGIN. Chest thorax CTA -- interval development of small bilateral pulmonary artery filling defects consistent with acute pulmonary embolism. REVIEW OF SYSTEMS: Positive for complaints of bilateral knee pain, anxiety and depression. PHYSICAL EXAMINATION: As per DANYELLE Du. IMPRESSION: A 66-year-old woman with multiple medical conditions and recent bilateral total knees who is admitted with pulmonary embolism. We are consulted to evaluate depression and anxiety. The patient clearly has a very chronic pattern of anxiety dating back decades as well as depressed mood. She has never really seen a psychiatric professional and that is in order at this time. I will have our liaison nurse return to facilitate outpatient appointments. Although she lists many medications as allergies, most of them are simply side effects, some of which are expected. The SSRIs can cause vivid dreaming as can most medications that affect neurotransmitters. She seems to be tolerating Celexa better since it has been moved to morning, but I have suggested that since she is already anxious about this medication that we switch it out for Lexapro 5 mg daily, and proceed only with a very slow titration. She is agreeable to outpatient followup, which I think will benefit her greatly. She is not currently suicidal and meets no criteria for inpatient care. DIAGNOSES: 1. Depressive disorder not otherwise specified, differential includes mood disorder related to medical conditions, major depressive disorder, adjustment disorder with depressed mood. 2. Generalized anxiety disorder. 3. Medical conditions as above. PLAN: Has been reviewed with Dr. Lidya Wright. 1. Depression. Discontinue Celexa in favor of Lexapro 5 mg q.a.m. We will have liaison nurse return to facilitate outpatient appointments with both a therapist and prescriber. Does not meet criteria for inpatient treatment. 2. Generalized anxiety disorder. Medications and therapy as above. We thank you for allowing us to participate in this woman's care.
[2016-10-16 00:20] VITALS: BP 124/73; PULSE 68; TEMP 36.6; O2SAT 96
[2016-10-16] MEDS ORDERED: NURSING VERBAL MED ORDER ONE ×2 (02:15→11:15)
[2016-10-16] MEDS: SODIUM CHLORIDE 0.9% 1000ML 1,000 ML IV SCH (02:38)
[2016-10-16] MEDS ORDERED: OXYCODONE HCL IR 5 MG TAB (IMMEDIATE RELEASE) PO PRN (03:00)
[2016-10-16 03:54] VITALS: BP 136/71; PULSE 64; TEMP 36.9; O2SAT 97
[2016-10-16 08:03] VITALS: BP 132/72; PULSE 62; TEMP 36.8; O2SAT 96
[2016-10-16 08:15] LABS: BUN/CREATININE RATIO 7.2 (10-20); CALCIUM 8.7 mg/dl (8.5-10.1); CREATININE 0.69 mg/dl (0.60-1.20); POTASSIUM 3.7 mmol/L (3.5-5.1)
[2016-10-16] MEDS: APIXABAN 2.5 MG TAB PO SCH (08:16)
[2016-10-16 08:46] LABS: URINE APPEARANCE CLEAR (CLEAR); URINE BILIRUBIN NEG (NEG); URINE COLOR YELLOW; URINE NITRITE NEG (NEG); URINE SPECIFIC GRAVITY 1.008 (1.000-1.030); UROBILINOGEN NEG (NEG)
[2016-10-16 08:51] LABS: MANUAL MICROSCOPIC REQUIRED? NO; REVIEW REQ? NO
[2016-10-16] MEDS ORDERED: ESCITALOPRAM OXALATE 10 MG TAB PO SCH (09:00)
[2016-10-16] MEDS ORDERED: LVNIS80 SQ (11:10)
[2016-10-16] MEDS ORDERED: LXP10 PO (11:10)
[2016-10-16] MEDS ORDERED: LOPE1CAP6 PO (11:10)
[2016-10-16] MEDS ORDERED: ONDA4TAB10 SL (11:10)
[2016-10-16] MEDS ORDERED: CMD5 PO (11:10)
--- NOTE | 2016-10-16 11:13 | Discharge Instructions ---
Discharge Instructions Admission Admission Date: Oct 14, 2016 at 18:43 Admission Diagnosis: Acute Pulmonary Embolism. Discharge Care Plan - Problem: Medical Problems: (1) Acute pulmonary embolism Care Plan - Goal(s): Decrease discomfort, Improve function Care Plan - Instructions: Activity Recommendations: no limitations Recommended Home Diet: Regular Provider Instructions: Please have INR check on 10/18/16 results will be faxed to Dr. Koehler office Please take your Lovenox dose starting tonight Please followup with your scheduled appointment with your PCP on 10/22/16 VTE Core Measure Inpt VTE Proph given/why not?: Enoxaparin (Lovenox)SQ Laboratory Results Test Results: Hemoglobin A1c Test 08/16/16 14:37 Range/Units Estimated Average Glucose 108 mg/dl Hemoglobin A1c 5.4 4.5-5.6 % Jennifer Cool Recommendations: Call your doctor if: * Temperature above 101 degrees * Pain not relieved by pain medicine ordered * There is increased drainage or redness from any incision * You have any unanswered questions or concerns. Your Doctors Instructions noted above were prepared by provider Nargis Paredes.
[2016-10-16] MEDS: ALPRAZOLAM 0.5 MG TAB PO PRN (11:41)
[2016-10-16 11:50] VITALS: BP 128/74; PULSE 65; TEMP 36.5; O2SAT 98
--- NOTE | 2016-10-16 15:58 | Discharge Summary ---
Discharge Summary Admission Date: Oct 14, 2016 at 18:43 Discharge Date: Oct 16, 2016 Discharge Disposition: Home Principal Diagnosis: Pulmonary Embolism Problems/Secondary Diagnoses: (1) Asthma Status: Chronic (2) Cervicalgia Status: Chronic (3) Depression Status: Chronic (4) Frequent headaches Status: Chronic (5) Gastric ulcer Status: Chronic Consultations: Psychiatry Medication Reconciliation New Medications: Loperamide Hcl (Anti-Diarrheal) 2 Mg Cap 2 MG PO Q6HWA for Diarrhea for 30 Days, #30 Ondasetron Odt (Zofran Odt) 4 Mg Tab 4 MG SL Q6H for Nausea for 30 Days, #60 TAB Enoxaparin (Lovenox) 80 Mg/0.8 Ml Inj 70 MG SQ Q12 for 6 Days Escitalopram Oxalate (Escitalopram Oxalate) 10 Mg Tab 5 MG PO QAM for 30 Days, #15 TAB Warfarin Sod (Coumadin) 5 Mg Tab 5 MG PO DAILY@16 for 30 Days, TAB Continued Medications: Albuterol Hfa (Ventolin Hfa) 200 Puffs/56490 Mcg Aers 2 PUFFS INH QID PRN for Shortness of Breath, #1 INHALER Alprazolam (Alprazolam) 0.5 Mg Tab 0.5 MG PO Q8H PRN for Anxiety/Agitation for 10 Days, #30 TAB Cyclosporine (Ophth) (Restasis) 0.05 % Emu 1 DROP OP BID, BTL Fluticasone Prop/Salmeterol (Advair Diskus 250-50 Mcg/Dose) 14 Puff/1 Inhaler Aerp 1 PUFF PO BID PRN for PRN Hydroxyzine Hcl (Atarax) 10 Mg Tab 5 MG PO TID, TAB Montelukast Sodium (Singulair) 10 Mg Tab 10 MG PO PRN, TAB Oxycodone HCl (Oxycodone HCl) 5 Mg Tab 10 MG PO Q6H PRN for Pain for 10 Days, #80 TAB Sumatriptan Succinate (Imitrex) 50 Mg Tab 1 TAB PO UD PRN for Migraine Discontinued Medications: Enoxaparin (Enoxaparin Sodium) 40 Mg/0.4 Ml Inj 40 MG SQ Q24H for 12 Days Discharge Exam Review of Systems: Constitutional: No chills Eyes: No worsening of vision ENT: No unusual epistaxis Respiratory: No shortness of breath, No sputum Cardiovascular: No chest pain Abdomen: No diarrhea, No nausea, No pain Musculoskeletal: No joint pain Genitourinary - Female: No dysuria Genitourinary - Male: No dysuria, No hematuria Neurologic: No memory loss, No paralysis Psychiatric: No depression symptoms Endocrine: No fatigue Physical Exam: General Appearance: WD/WN, no apparent distress Eyes: normal inspection ENT: normal ENT inspection Neck: supple, no adenopathy Respiratory/Chest: chest non-tender, lungs clear Cardiovascular: regular rate, rhythm, no edema Abdomen / GI: normal bowel sounds, non tender, soft Extremities: normal inspection, no calf tenderness Neurologic/Psychiatric: 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 Wooten is a 66 y/o female with PMHx of Migraines, Anxiety/Depression, and Bilateral TKA (August 27, 2016) who presents to the ED c/o intermittent nausea adn diarrhea x 1 1/2 months. CTA of chest reveals bilateral small pulmonary emboli with B/L lower extremity U/S negative for DVT. Patient was admitted to the hospitalist floors. She was started on lovenox however switched to eliquis as it was thought that was what she would be discharged home. Patients nausea and vomiting resolved with zofran and IVF. She was tolerating a regular diet with no symptoms after 24 hours. C diff sent was negative. Patients symptoms were thought to be attributed to her anxiety. Psychiatry was consulted and recommended switching her to escitalopram . Unfortunately patient was unable to afford the copay on eliquis and was discharged on coumadin and a lovenox bridge. She was instructed to have an INR check on Friday and follow up with her PCP on 10/22/16. Total Time Spent: Greater than 30 minutes This includes examination of the patient, discharge planning, medication reconciliation, and communication with other providers. Discharge Instructions Please refer to the electronic Patient Visit Report (Discharge Instructions) for additional information. Additional Copies To Eloise Koelher M.D.
[2016-10-16] MEDS ORDERED: WARFARIN SOD 5 MG TAB PO SCH (16:00)
[2016-10-16] MEDS ORDERED: ENOXAPARIN 80 MG/0.8 ML SYR SQ SCH (21:00)
[2016-10-18 15:28] LABS: ANTITHROMBINIII ACTIVITY** 83 % activity (80-120); B2 GLYCOPROTEIN IGA <9 SAU (<=20); B2 GLYCOPROTEIN IGG <9 SGU (<=20); B2 GLYCOPROTEIN IGM <9 SMU (<=20); LUPUS ANTICOAGULANT** TC36573X Negative (Negative); PROTEIN C ACTIVITY** TC 1777X 116 % (70-180)
== END 2016-10-16 13:30 | disposition home or self-care (01) | DRG 176 ==
LOC: ENRESERVDT → ENRESERVTM → C.EDB 11:47 → C.MED 18:43
PROVIDERS: ADMIT Hospitalist; ATTEND Hospitalist
DX: I26.99 Other pulmonary embolism without acute cor pulmonale (principal); Z96.653 Presence of artificial knee joint, bilateral; J45.909 Unspecified asthma, uncomplicated; F32.9 Major depressive disorder, single episode, unspecified; M54.2 Cervicalgia; F41.1 Generalized anxiety disorder; F41.9 Anxiety disorder, unspecified

== ENCOUNTER → 2017-04-18 | Outpatient (CLI) | payer OTHER, MEDICARE ==
[~2017-04-18] MED LIST changes: -ALBUAER19 INH; -AMB5 PO; +CITA20TA4 PO; -CLC100 PO; +CMD5 PO; +CYCL0.052 OP; +DICL1SOL6 TOP; -FRRG PO; +HYDR-389 PO; +LOPE1CAP6 PO; -LPR25 PO; -LVNIS40 SQ; +LVNIS80 SQ; +LXP10 PO; -MULT-589 PO; -NCY50 PO; -NRN100 PO; -OXYSR10 PO; -PRT40 PO; -RSTOPS OP; -SNK PO; +VNTHFA/IN INH
--- NOTE | 2017-04-18 13:33 | DIAGNOSTIC IMAGING REPORT ---
BONE SCAN 3 PHASE LIMITED CLINICAL HISTORY: 67 years-old Female presenting with RIGHT KNEE PAIN, total right knee arthroplasty. TECHNIQUE: Planar anterior and posterior imaging was performed following administration of 25.457 mCi Tc-99m MDP. Initial angiographic images were obtained every 4 seconds for 1 minute in each projection. Subsequently, anterior and posterior images in the blood flow phase and multiprojectional images and the delayed phase were obtained. COMPARISON: Correlation made to plain radiographs from 08/27/2016. FINDINGS: Initial angiographic images demonstrate normal radiotracer activity within the lower extremity arteries. Subsequently, blood pool phase demonstrates symmetric uptake of radiotracer surrounding the bilateral prostheses. On delayed phase, no focal radiotracer activity to suggest loosening or infection. As the patient's surgery was within one year of the exam, a certain degree of activity is expected in the periprostatic region. This is likely within the range of normal. IMPRESSION: 1. No convincing evidence of loosening or infection at the bilateral knee prostheses. Electronically signed by: Ernesto Dawson M.D. 04/18/2017 1:31 PM Dictated Date/Time: 04/18/2017 1:21 PM
== END | disposition home or self-care (01) ==
LOC: C.NUCL 09:21
PROVIDERS: ATTEND Pain Medicine Interventional Pain Medicine
DX: M25.561 Pain in right knee (principal)

== ENCOUNTER → 2017-06-20 | Outpatient (CLI) | payer OTHER, MEDICARE | END | disposition home or self-care (01) | LOC: C.LAB 09:07 | PROVIDERS: ATTEND Orthopaedic Surgery | DX: Z96.653 Presence of artificial knee joint, bilateral (principal) ==

== ENCOUNTER → 2017-06-20 | Outpatient (CLI) | payer OTHER, MEDICARE ==
[~2017-06-20] MED LIST changes: +OPTIRAY 320 IV PRN
--- NOTE | 2017-06-20 12:45 | DIAGNOSTIC IMAGING REPORT ---
ABD/PELVIS COMBO HISTORY: 67 years-old Female R31.29 Hematuria, [id number] UTI (urinary tract infection) acute microscopic hematuria with urinary tract infection. COMPARISON: CT chest 10/14/2016 TECHNIQUE: Multiple axial CT images of the abdomen and pelvis were obtained both with and without the use of 118 mL Optiray 320 IV contrast utilizing hematuria protocol. A dose lowering technique was used consistent with the principals of MERI. FINDINGS: There is mild dependent bibasilar atelectasis. No pneumoperitoneum. Imaged inferior cardiac chambers are unremarkable. Coronary arterial calcifications are seen. The liver, spleen, pancreas and adrenal glands are unremarkable. Prior cholecystectomy. Precontrast images demonstrate no renal calculi. Ureters are normal in caliber without ureteral calculi. No focal filling defects identified on the delayed postcontrast images within the collecting systems, ureters or urinary bladder. Urinary bladder is partially collapsed and does not demonstrate significant wall thickening or surrounding inflammatory stranding. Prior hysterectomy. Abdominal aorta is normal in course and caliber. No bulky retroperitoneal adenopathy. No focal bowel wall thickening or inflammatory stranding. There is wall thickening throughout the stomach which is only partially distended. Colonic diverticulosis without diverticulitis. The appendix appears normal. Soft tissues are unremarkable. The bones appear intact and are mildly osteopenic. IMPRESSION: 1. No acute intra-abdominal or intrapelvic abnormality identified, specifically no renal calculi or hydronephrosis. 2. Prior hysterectomy and cholecystectomy. 3. Colonic diverticulosis without diverticulitis. 4. Wall thickening of the stomach likely secondary to nondistention. If of further clinical concern, endoscopy may be considered. The above report was generated using voice recognition software. It may contain grammatical, syntax or spelling errors. Electronically signed by: Anselmo Gonzalez M.D. 06/20/2017 12:44 PM Dictated Date/Time: 06/20/2017 12:36 PM
== END | disposition home or self-care (01) ==
LOC: C.CTS 10:24
PROVIDERS: ATTEND Urology
DX: N39.0 Urinary tract infection, site not specified (principal); R31.29 Other microscopic hematuria; Z90.710 Acquired absence of both cervix and uterus; Z90.49 Acquired absence of other specified parts of digestive tract; K57.30 Diverticulosis of large intestine without perforation or abscess without bleeding

== ENCOUNTER → 2017-07-01 | Day surgery (SDC) | payer OTHER, MEDICARE ==
[2017-06-20 09:27] VITALS: BMI 29.0
--- NOTE | 2017-06-20 09:46 | PAT Medication Instructions ---
Service Date Jun 20, 2017. Current Home Medication List Albuterol Hfa (Ventolin Hfa), 2 PUFFS INH QID PRN for Shortness of Breath Citalopram Hydrobromide (Citalopram Hydrobromide), 1 TAB PO QAM Cyclosporine (Ophth) (Restasis), 1 DROP OP BID Diclofenac Sodium (Topical) (Pennsaid), 1 DOSE TOP DAILY Fluticasone Prop/Salmeterol (Advair Diskus 250-50 Mcg/Dose), 1 PUFF PO BID PRN for PRN Montelukast Sodium (Singulair), 10 MG PO PRN Sumatriptan Succinate (Imitrex), 1 TAB PO UD PRN for Migraine Medication Instructions For Your Scheduled Surgery - Hold the following medications 24 hours prior to surgery: Diclofenac Sodium (Topical) (Pennsaid), 1 DOSE TOP DAILY - Take the following medications the morning of surgery with a sip of water OTHERWISE NOTHING TO EAT OR DRINK AFTER MIDNIGHT: Citalopram Hydrobromide (Citalopram Hydrobromide), 1 TAB PO QAM Sumatriptan Succinate (Imitrex), 1 TAB PO UD PRN for Migraine Albuterol Hfa (Ventolin Hfa), 2 PUFFS INH QID PRN for Shortness of Breath(use if needed; BRING TO HOSPITAL) Cyclosporine (Ophth) (Restasis), 1 DROP OP BID Montelukast Sodium (Singulair), 10 MG PO PRN Fluticasone Prop/Salmeterol (Advair Diskus 250-50 Mcg/Dose), 1 PUFF PO BID PRN for PRN - Take the following medications as scheduled the night before surgery: Albuterol Hfa (Ventolin Hfa), 2 PUFFS INH QID PRN for Shortness of Breath Cyclosporine (Ophth) (Restasis), 1 DROP OP BID Fluticasone Prop/Salmeterol (Advair Diskus 250-50 Mcg/Dose), 1 PUFF PO BID PRN for PRN If you have any questions please call us at [phone] or [phone] or [phone]
[2017-06-20 09:51] LABS: BASO % 0.2 %; BASO ABS # 0.01 K/uL (0-0.2); COMPLETE YES; HEMATOCRIT 42.9 % (37-47); LYMPH % 26.8 %; MEAN CELL VOLUME 93.5 fL (80-100); MEAN CORPUSCULAR HEMOGLOBIN 31.2 pg (25-34); MEAN CORPUSCULAR HGB CONC 33.3 g/dl (32-36); MEAN PLATELET VOLUME 10.5 fL (7.4-10.4); MONO % 7.2 %; NEUT % 62.8 %; PLATELET COUNT 236 K/uL (130-400); RED BLOOD COUNT 4.59 M/uL (4.2-5.4); WHITE BLOOD COUNT 5.59 K/uL (4.8-10.8)
[2017-06-20 09:59] LABS: BUN/CREATININE RATIO 17.6 (10-20); CALCIUM 8.9 mg/dl (8.5-10.1); CREATININE 0.88 mg/dl (0.60-1.20); POTASSIUM 3.9 mmol/L (3.5-5.1)
--- NOTE | 2017-06-20 10:31 | DIAGNOSTIC IMAGING REPORT ---
TWO VIEW CHEST CLINICAL HISTORY: Preoperative examination. FINDINGS: PA and lateral chest radiographs are compared to chest x-ray and chest CT dated 10/14/2016. The cardiomediastinal silhouette is unremarkable. There is mild atherosclerotic calcification of the thoracic aorta. The lungs and pleural spaces are clear. There is no pneumothorax. The skeletal structures are osteopenic. Fusion hardware is seen in the lower cervical spine. Mild degenerative changes noted in the thoracic spine. Cholecystectomy clips are observed. IMPRESSION: No active disease in the chest. Electronically signed by: Chuy Pena M.D. 06/20/2017 10:30 AM Dictated Date/Time: 06/20/2017 10:29 AM
[2017-06-20 11:19] LABS: URINE APPEARANCE CLEAR (CLEAR); URINE BILIRUBIN NEG (NEG); URINE COLOR YELLOW; URINE NITRITE NEG (NEG); URINE PH 5.5 (4.5-7.5); URINE SPECIFIC GRAVITY 1.025 (1.000-1.030); UROBILINOGEN NEG (NEG)
[2017-06-20 11:22] LABS: MANUAL MICROSCOPIC REQUIRED? NO; REVIEW REQ? NO
[~2017-07-01] VITALS: Ht 160 cm; Wt 74.7 kg
[~2017-07-01] MED LIST changes: +ATROPINE SULFATE 0.1 MG/ML 5ML SYR IV PRN; +CIPROFLOXACIN / D5W 400 MG IV SCH; -CMD5 PO; +EpHEDrine SULFATE INJ 50 MG/ML AMP IV PRN; +FENTANYL CITRATE INJ 50 MCG/1 ML 2 ML VIAL ONE; -HYDR-389 PO; +LACTATED RINGER'S 1000ML 1,000 ML IV SCH; +LIDOCAINE HCL 2% 2 ML VIAL (20MG/ML) ONE; -LOPE1CAP6 PO; -LVNIS80 SQ; -LXP10 PO; +MIDAZOLAM HCL 1 MG/ML 2ML VIAL ONE; -OPTIRAY 320 IV PRN; +PROPOFOL IV EMULSION 10 MG/ML 20 ML VIAL IV ONE; -RXC5 PO; +SCOPOLAMINE 1.5 MG TDSY TD ONE; +SODIUM CHLORIDE 0.9% 1000ML 1,000 ML IV SCH; -XNX5 PO; +[UNRECOGNIZED DRUG - REMARK] SCH
[2017-07-01 10:53] VITALS: BP 176/88; PULSE 64; TEMP 36.6; O2SAT 96; Ht 160 cm; Wt 74.7 kg
--- NOTE | 2017-07-01 12:42 | History & Physical Bridge Note ---
H&P Re-Evaluation Bridge Note: I have examined the patient, reviewed the History & Physical and in the interval since the performance of the History & Physical I have noted the following changes of clinical significance: No changes noted
--- NOTE | 2017-07-01 12:53 | Discharge Instructions ---
Discharge Instructions Date of Service Jul 01, 2017. Admission Reason for Admission: Microscopic Hematuria Discharge Discharge Diagnosis / Problem: microscopic hematuria; urgency/frequency Discharge Goals Goal(s): Decrease discomfort, Improve function, Increase independence, Improve disease control Activity Recommendations Activity Limitations: resume your previous activity Lifting Limitations: none Exercise/Sports Limitations: none May Resume Sexual Activity: when tolerated Shower/Bathe: no limitations Driving or Machine Use: resume 1 day after discharge . Instructions / Follow-Up Instructions / Follow-Up Please keep your previously scheduled follow up appointment. Discharge Diet Recommended Diet: Regular Diet Pending Studies Studies pending at discharge: no Medical Emergencies . Who to Call and When: Medical Emergencies: If at any time you feel your situation is an emergency, please call 911 immediately. . Non-Emergent Contact Non-Emergency issues call your: Urologist Call Non-Emergent contact if: you have a fever, temperature is above 101.5, your pain is not controlled, your pain is worsening . . "Provider Documentation" section prepared by Juan Pablo Perez. . VTE Core Measure Inpt VTE Proph given/why not?: Treatment not indicated
--- NOTE | 2017-07-01 13:21 | [facility] Operative Report ---
Operative Report Operative Date Jul 01, 2017. Pre-Operative Diagnosis Hematuria, microscopic Urinary Tract Infections Post-Operative Diagnosis Hematuria, microscopic Urinary Tract Infections Procedure(s) Performed Cystoscopy Surgeon Dr. Saurabh Alanis Piper Installer Surgeon(s) None Estimated Blood Loss 0 mL Findings Healthy-appearing bladder Specimens No pathology specimens per surgeon Drains none Anesthesia sedation Complication(s) None Disposition Recovery Room / PACU (stable) Indications Microscopic hematuria Description of Procedure Patient was identified in the preoperative holding area, appropriate informed consents reviewed and completed and the patient was transported to the operating suite. She received appropriate sedation was placed in dorsal lithotomy position where she was sterilely prepped and draped in standard fashion. A 23 [place] cystoscope with 70 lens performed a full inspection of the bladder. There were no ulcerating lesions or tumors within the bladder. Ureteral orifices were in orthotopic position, there were no stones. There is no evidence of infection. Progression taken to document a healthy-appearing bladder. She was noted to have clear efflux from each kidney. Following my inspection, I emptied the bladder, and concluded the case. She was reversed from anesthesia and taken to the PACU in stable condition. I attest to the content of the Intraoperative Record and any orders documented therein. Any exceptions are noted below.
--- NOTE | 2017-07-01 13:44 | Anesthesiology Progress Note ---
Anesthesia Post Op Note Date & Time Jul 01, 2017 at 13:44 Vital Signs Pain Intensity: 0 Vital Signs Past 12 Hours Date Time Temp Pulse Resp B/P (MAP) Pulse Ox O2 Delivery O2 Flow Rate FiO2 07/01/17 13:30 75 14 150/74 97 Room Air 07/01/17 13:22 36.6 90 15 173/67 100 Oxymask 10 07/01/17 10:53 36.6 64 18 176/88 (117) 96 Room Air Notes Mental Status: alert / awake / arousable, participated in evaluation Pt Amnestic to Procedure: Yes Nausea / Vomiting: adequately controlled Pain: adequately controlled Airway Patency, RR, SpO2: stable & adequate BP & HR: stable & adequate Hydration State: stable & adequate Anesthetic Complications: no major complications apparent
[2017-07-01 13:50] VITALS: BP 145/77; PULSE 81; TEMP 36.9; O2SAT 98
[2017-07-01 14:20] VITALS: BP 145/84; PULSE 73; O2SAT 100
[2017-07-01 14:50] VITALS: BP 173/82; PULSE 70; TEMP 36.4; O2SAT 99
== END | disposition home or self-care (01) ==
LOC: C.ACU 10:31
PROVIDERS: ATTEND Urology
DX: R31.29 Other microscopic hematuria (principal); N39.0 Urinary tract infection, site not specified; J45.909 Unspecified asthma, uncomplicated; Z90.49 Acquired absence of other specified parts of digestive tract; Z90.710 Acquired absence of both cervix and uterus; Z90.89 Acquired absence of other organs; Z98.41 Cataract extraction status, right eye; Z98.42 Cataract extraction status, left eye; Z96.653 Presence of artificial knee joint, bilateral; Z68.29 Body mass index [BMI] 29.0-29.9, adult; Z80.9 Family history of malignant neoplasm, unspecified; Z82.49 Family history of ischemic heart disease and other diseases of the circulatory system; Z82.3 Family history of stroke; Z81.8 Family history of other mental and behavioral disorders; Z88.5 Allergy status to narcotic agent; Z88.0 Allergy status to penicillin; Z88.1 Allergy status to other antibiotic agents

== ENCOUNTER → 2018-01-22 | Outpatient (CLI) | payer OTHER, MEDICARE ==
[~2018-01-22] MED LIST changes: -ATROPINE SULFATE 0.1 MG/ML 5ML SYR IV PRN; -CIPROFLOXACIN / D5W 400 MG IV SCH; -EpHEDrine SULFATE INJ 50 MG/ML AMP IV PRN; -FENTANYL CITRATE INJ 50 MCG/1 ML 2 ML VIAL ONE; -LACTATED RINGER'S 1000ML 1,000 ML IV SCH; -LIDOCAINE HCL 2% 2 ML VIAL (20MG/ML) ONE; -MIDAZOLAM HCL 1 MG/ML 2ML VIAL ONE; -PROPOFOL IV EMULSION 10 MG/ML 20 ML VIAL IV ONE; -SCOPOLAMINE 1.5 MG TDSY TD ONE; -SODIUM CHLORIDE 0.9% 1000ML 1,000 ML IV SCH; -[UNRECOGNIZED DRUG - REMARK] SCH
== END | disposition home or self-care (01) ==
LOC: C.LABSPEC 13:05
PROVIDERS: ATTEND Urology
DX: R35.0 Frequency of micturition (principal)